=== PATIENT | female | born 1945 | race Caucasian/White ===

== ENCOUNTER 2016-04-18 08:58 | Outpatient (CLI) ==
--- NOTE | 2016-04-18 11:57 | MRI ---
EXAM: MRI left knee without contrast. HISTORY: Left knee pain. TECHNIQUE: Using a local extremity coil on a high field strength magnet multiplanar multisequence M RI was performed of the left knee without intravenous or intra-articular gadolinium contrast.. FINDINGS: I do not have prior radiographs of the left knee available for comparison at the time of this dictation. Within the medial compartment there is tear posterior horn medial meniscus involving the inner andrew n and undersurface. 7 mm area of chondrosis and cartilage ulceration weightbearing medial femoral c ondyle. Mild chondrosis over the weightbearing medial tibial plateau. Joint centered subchondral b one marrow edema/cyst formation more over the medial weightbearing aspect of medial compartment with subchondral cyst formation as well as some bone marrow edema/hyperemia throughout the medial femora l condyle.. Productive osteophyte formation. Within the lateral compartment lateral meniscus is intact without discrete surfacing meniscal tear. The lateral compartment cartilage shows chondrosis over the weightbearing lateral tibial plateau wi th tiny fissuring/ulceration. Within the patellofemoral compartment the patella seated with intact patellar attachment of the medi al and lateral patellar retinaculum.. Markedly severe patellar chondrosis/chondromalacia patella. Approximate 20 x 30 mm area of full-thickness cartilage ulceration/denudation centered over the medi an ridge with underlying subchondral edema/cyst formation. Chondrosis/corresponding disease over th e medial trochlea. Small/moderate sized left knee effusion. No osteochondral loose bodies. Intact anterior and academic affairs coordinator ior cruciate ligament fibers of normal orientation. The extensor mechanism is intact. Anterior sup erficial soft tissue edema/swelling.. Grade I sprain medial collateral ligament. Lateral collatera l ligament complex intact as is the posterolateral corner. Moderate sized minimally complex posteri or joint extension/popliteal cyst spanning 7 cm craniocaudad.. IMPRESSION: Tear posterior horn medial meniscus involving the inner margin and undersurface. Changes of tricompartmental osteoarthrosis, medial and patellofemoral compartment dominant, as descr ibed. Small/moderate sized left knee effusion. Intact cruciate ligaments. Grade I sprain medial collateral ligament. Moderate sized minimally complex posterior joint extension/popliteal cyst. Recommendation is obtainment and correlation with plain film radiographs of the left knee as none ar e available for comparison at the time of this dictation.
== END 2016-04-18 08:59 | disposition home or self-care (01) ==
LOC: RAD 08:58
PROVIDERS: ATTEND Physician Assistant
DX: M25.562 Pain in left knee (principal)

== ENCOUNTER 2016-10-21 13:22 | Outpatient (CLI) ==
[2016-10-21 13:49] LABS: BILIRUBIN,URINE Negative (NEGATIVE); KETONES,URINE Negative (NEGATIVE); LEUKOCYTE ESTERASE ,URINE 3+ (NEGATIVE); NITRITE,URINE Positive (NEGATIVE); PROTEIN,URINE Negative (NEGATIVE); URINE, BLOOD Trace-lysed (NEGATIVE)
[2016-10-21 13:51] LABS: BASOPHILS # (AUTO) 0.1 K/uL (0-0.2); BASOPHILS % (AUTO) 1.1 % (0.0-3.0); EOSINOPHILS # (AUTO) 0.1 K/ul (0.0-0.7); EOSINOPHILS % (AUTO) 1.6 % (0.0-7.0); HEMATOCRIT 38.1 % (37.0-47.0); HEMOGLOBIN 12.8 g/dl (12.0-16.0); LYMPHOCYTES # (AUTO) 1.4 K/uL (0.60-3.4); LYMPHOCYTES % (AUTO) 30.2 (10.0-50.0); MEAN CORPUSCULAR HEMOGLOBIN 28.8 pg (27.0-31.0); MEAN CORPUSCULAR HGB CONC 33.6 (31.8-35.4); MEAN CORPUSCULAR VOLUME 85.6 fl (81.0-99.0); MONOCYTES # (AUTO) 0.3 K/uL (0.4-2.0); MONOCYTES % (AUTO) 7.5 (0-10); NEUTROPHILS # (AUTO) 2.7 K/ul (2.0-6.9); NEUTROPHILS % (AUTO) 59.6; PLATELET COUNT 219 10^3/uL (140-440); RED BLOOD COUNT 4.45 10^6/ul (4.20-5.40); WHITE BLOOD COUNT 4.51 K/ul (4.6-10.2)
[2016-10-21 13:57] LABS: ADD URINE MICROSCOPIC YES
[2016-10-21 14:17] LABS: BACTERIA,URINE 3+ (NOT PRESENT)
[2016-10-21 14:57] LABS: ALBUMIN 3.7 g/dL (3.4-5.0); ALBUMIN/GLOBULIN RATIO 1.28; ANION GAP 14.9; BILIRUBIN,TOTAL 0.54 mg/dL (0.00-1.20); BUN/CREATININE RATIO 25.97; CALCIUM 9.3 mg/dL (8.2-10.2); CHOL/HDL RATIO 4.1 (4.5-5.5); CREATININE 0.77 mg/dL (0.60-1.30); POTASSIUM 3.9 mmol/L (3.5-5.10); TOTAL PROTEIN 6.6 g/dL (5.8-8.1)
== END 2016-10-21 13:23 | disposition home or self-care (01) ==
LOC: LAB 13:22
PROVIDERS: ATTEND General Practice
DX: E66.3 Overweight (principal); Z79.899 Other long term (current) drug therapy
CPT/HCPCS: 36415; 80053; 80061; 81001; 83525; 85025; 87086

== ENCOUNTER 2016-11-26 15:20 | Outpatient (CLI) ==
[2016-11-26 15:49] LABS: HEMATOCRIT 39.4 % (37.0-47.0); HEMOGLOBIN 13.5 g/dl (12.0-16.0); MEAN CORPUSCULAR HEMOGLOBIN 29.2 pg (27.0-31.0); MEAN CORPUSCULAR HGB CONC 34.3 (31.8-35.4); MEAN CORPUSCULAR VOLUME 85.1 fl (81.0-99.0); PLATELET COUNT 223 10^3/uL (140-440); RED BLOOD COUNT 4.63 10^6/ul (4.20-5.40); WHITE BLOOD COUNT 5.23 K/ul (4.6-10.2)
[2016-11-26 16:50] LABS: ERYTHROCYTE SEDIMENTATION RATE 18 mm/hr (0-20); ESR INTERNAL QC INTERNAL QC VALID
== END 2016-11-26 15:21 | disposition home or self-care (01) ==
LOC: LAB 15:20
DX: H47.011 Ischemic optic neuropathy, right eye (principal)
CPT/HCPCS: 36415; 85027; 85651; 86140

== ENCOUNTER 2016-12-02 11:11 | Outpatient (CLI) ==
[2016-12-02 11:47] LABS: CREATININE 0.76 mg/dL (0.60-1.30)
--- NOTE | 2016-12-02 19:31 | MRI ---
EXAM: Brain and orbit MRI with and without contrast. HISTORY: Ischemic optic neuropathy, right eye. COMPARISON: None. TECHNIQUE: Multiplanar, multisequence MR images were acquired of the brain with thin sections throug h the orbits before and after administration of intravenous contrast. FINDINGS: The midline structures are central and the craniocervical junction is unremarkable. The v entricles and sulci are normal in size and configuration. There are no abnormal extra-axial fluid co llections. The brain parenchyma has no diffusion restriction to suggest acute hypoperfusion or infarction. Smal l faint patchy T2 / FLAIR hyperintensities are present in the bilateral parietal occipital periventri cular white matter and there are a few scattered in the subcortical white matter consistent with kieran r leukomalacia. After administration of gadolinium, no enhancing lesions are identified. The corpus callosum has a normal configuration. The pituitary gland is normal in size. Thin sections were acquired through the orbits. There are no intraorbital masses. There is mild enla rgement and slightly increased T2 signal in the right optic nerve compared to the left without enhanc ement compatible with mild edema. The optic chiasm and proximal optic tracts are unremarkable. Ther e has been previous lens surgery bilaterally. Mild polypoid mucosal thickening is present in the right maxillary sinus. Middle ears and mastoids a re clear. There is no abnormal enhancement in the internal auditory canals or labyrinthine structure s. Flow voids are present in the major intracranial arteries and dural venous sinuses. There is hypertrophic facet arthropathy in the the upper cervical spine. This causes mild 1.5 mm deg enerative anterolisthesis of C3 and C4. IMPRESSION: 1. No intracranial mass, hemorrhage or acute cerebral infarct. 2. There is mild swelling and bright T2 signal in the right optic nerve compared to the left which m ay represent edema. 3. Minor chronic ischemic small vessel disease.
== END 2016-12-02 11:12 | disposition home or self-care (01) ==
LOC: RAD 11:11
PROVIDERS: ATTEND Ophthalmology
DX: H47.011 Ischemic optic neuropathy, right eye (principal); H53.123 Transient visual loss, bilateral
CPT/HCPCS: 36415; 82565

== ENCOUNTER 2016-12-11 21:12 | Inpatient (IN) ==
[2016-12-11 21:30] VITALS: BMI 31.9
--- NOTE | 2016-12-11 22:19 | ED.PDOC ---
General ED Provider: Dr. SHERRELL BUTCHER Chief Complaint: Hypertension Stated Complaint: Patient is a 71 year old female who two weeks ago had a gradual to sudden partial loss of right eye vision. She was seen by a neurologist and had multiple test including MRI, CT, Carotid artery ultrasounds. She was place on 60mg of prednisone due to suspicion of temporal arthritis in attempt to prevent total visual loss. She was later seen by an interventional neurologist and had a temporal artery biopsy on the right. The biopsy results were reported to her as negative 3 days ago and was told to taper down her steroids. (Now on 50mg was to start 40 mg tonight) She followed up with one in a local clinic and was placed on clonidine for hypertension. She was then seen in another clinic few days later and started on Lisinopril. Today she comes to the ER tonight due to elevated blood pressure at home in the 200s after taking her Lisinopril 10mg tonight and the clonidine 0.1mg half an hour prior to arrival. She also reports that she has had difficulty sleeping due to steroids and has had anxiety for which she has been taking Ativan. She was worried because cannot get to the PCP after calling an failing to get at apt yesterday. She is accompanied by family. Time Seen by Physician: 21:37 Mode of Arrival: Walk-In Information Source: Patient Exam Limitations: No limitations [facility] Nursing and Triage Documentation Reviewed and Agree: Yes Miscellaneous Complaint Exam - Physical Examination Complaint/Exam Onset/Duration: 1 Symptoms Are: Still present Timing: Constant Location: Right eye Review of Systems - Review Of Systems Constitutional: Reports: No symptoms Eyes: Reports: Vision change (partial on the right) Ears, Nose, Mouth, Throat: Reports: No symptoms Respiratory: Reports: No symptoms Cardiac: Reports: No symptoms GI: Reports: No symptoms : Reports: No symptoms Musculoskeletal: Reports: No symptoms Skin: Reports: No symptoms Neurological: Reports: Anxiety Endocrine: Reports: No symptoms Hematologic/Lymphatic: Reports: No symptoms All Other Systems: Reviewed and Negative Past Medical History - Past Medical History Previously Healthy: Yes Endocrine: Reports: None Cardiovascular: Reports: Hypertension Respiratory: Reports: None Hematological: Reports: None Gastrointestinal: Reports: None Genitourinary: Reports: None Neuro/Psych: Reports: Anxiety Musculoskeletal: Reports: None Cancer: Reports: None Last Menstrual Period: post menopausal - Surgical History General Surgical History: Reports: Hysterectomy, Appendectomy, Cholecystectomy, Other (Right temporal artery biopsy.) - Family History Family History: Reports: None - Social History Smoking Status: Never smoker Hx Substance Use: No Alcohol Screening: None - Immunizations Tetanus Shot up to Date: No (unsure) Physical Exam - Physical Exam Appearance: Ill-appearing, Obese Ill-appearing: Mild Eyes: RAKESH, EOMI, Conjunctiva clear ENT: Oropharynx normal Neck: Supple Respiratory: Airway patent, Breath sounds clear, Breath sounds equal, Respirations nonlabored Cardiovascular: RRR, Pulses normal, No rub, No murmur GI/: Soft, Nontender, No masses, Bowel sounds normal, No Organomegaly Musculoskeletal: Normal strength, ROM intact, No edema, No calf tenderness Skin: Warm, Dry, Normal color (Healing right tempral artery area) Neurological: Sensation intact, Motor intact, Reflexes intact, Alert, Oriented Psychiatric: Anxious Re-Evaluation - Re-Evaluation Time of Re-Evaluation: 21:00 Vital Signs Stable: Yes (147/68) Appearance: NAD Neuro: Alert and Oriented X3 Critical Care Note - Critical Care Note Total Time (mins): 0 Course - Course Hematology/Chemistry: 12/11/16 22:28 12/11/16 22:28 Orders, Labs, Meds: Lab Review 12/11/16 12/11/16 22:28 22:28 WBC 8.42 RBC 4.32 Hgb 12.6 Hct 37.0 MCV 85.6 MCH 29.2 MCHC 34.1 RDW Coeff of Castillo 15.2 H Plt Count 226 Immature Gran % (Auto) 0.7 Neut % (Auto) 81.4 Lymph % (Auto) 12.0 [place] % (Auto) 5.9 Eos % (Auto) 0.0 Baso % (Auto) 0.0 Immature Gran # (Auto) 0.1 Neut # 6.9 Lymph # 1.0 [place] # 0.5 Eos # 0.0 Baso # 0.0 Sodium 142 Potassium 4.0 Chloride 110 H Carbon Dioxide 24 Anion Gap 12.0 BUN 22 H Creatinine 0.71 Estimated GFR (MDRD) 81.00 BUN/Creatinine Ratio 30.98 Glucose 127 H Calcium 8.9 Total Bilirubin 0.37 AST 6 L ALT 14 Alkaline Phosphatase 95 Total Protein 5.6 L Albumin 3.1 L Globulin 2.5 Albumin/Globulin Ratio 1.24 Orders Category Date Time Status CBC W/ AUTO DIFF Stat LAB 12/11/16 22:28 Completed COMPREHENSIVE METABOLIC PANEL Stat LAB 12/11/16 22:28 Completed Medications Generic Name Dose Route Start Last Admin Trade Name Freq PRN Reason Stop Dose Admin Acetaminophen 650 mg 12/11/16 23:43 Tylenol PO Q4H PRN fever or mild pain Amlodipine Besylate 5 mg 12/13/16 02:00 Norvasc PO DAILY [facility] Aspirin 81 mg 12/12/16 08:00 Aspirin Ec PO DAILYWM CLAUDIA Famotidine 20 mg 12/12/16 09:00 Pepcid PO BID CLAUDIA Lisinopril 10 mg 12/12/16 09:00 Zestril PO DAILY CLAUDIA Lorazepam 0.5 mg 12/11/16 23:47 12/12/16 01:08 Ativan PO 0.5 mg BID PRN Administration anxiety Ondansetron HCl 4 mg 12/11/16 23:43 Zofran 4 Mg/2 Ml IVP Q6H PRN Nausea / Vomiting Prednisone 40 mg 12/12/16 08:00 Prednisone PO DAILYWM [facility] Vital Signs: Temp Pulse Resp BP Pulse Ox 12/11/16 21:20 96.9 F L 96 H 20 211/104 H 98 Departure - Departure Time of Disposition: 23:55 Disposition: ADMITTED INPATIENT Discharge Problem: Anxiety Hypertension Qualifiers: Hypertension type: essential hypertension Qualified Code(s): I10 - Essential ( primary) hypertension Condition: Stable Pt referred to PMD for follow-up: No (admitted ) Allergies/Adverse Reactions: Allergies ibuprofen [From Motrin] Allergy (Verified 12/11/16 21:45) rosuvastatin calcium [From Crestor] Allergy (Verified 12/11/16 21:45) Iodinated Contrast- Oral and IV Dye Adverse Reaction (Verified 12/11/16 21:48) Difficulty Swallowing Home Medications: Ambulatory Orders Clonidine HCl 0.1 mg PO TID PRN 12/11/16 Famotidine 20 mg PO BID 12/11/16 Lisinopril 10 mg PO DAILY 12/11/16
[2016-12-11 22:30] LABS: HEMOGLOBIN 12.6 g/dl (12.0-16.0); IMMATURE GRANULOCYTE % (AUTO) 0.7 % (0.0-5.0); MEAN CORPUSCULAR HEMOGLOBIN 29.2 pg (27.0-31.0); MEAN CORPUSCULAR HGB CONC 34.1 (31.8-35.4); MEAN CORPUSCULAR VOLUME 85.6 fl (81.0-99.0); MONOCYTES # (AUTO) 0.5 K/uL (0.4-2.0); MONOCYTES % (AUTO) 5.9 (0-10); NEUTROPHILS # (AUTO) 6.9 K/ul (2.0-6.9); NEUTROPHILS % (AUTO) 81.4; PLATELET COUNT 226 10^3/uL (140-440); RED BLOOD COUNT 4.32 10^6/ul (4.20-5.40); WHITE BLOOD COUNT 8.42 K/ul (4.6-10.2)
[2016-12-11 22:47] LABS: ALBUMIN 3.1 g/dL (3.4-5.0); ALBUMIN/GLOBULIN RATIO 1.24; BILIRUBIN,TOTAL 0.37 mg/dL (0.00-1.20); BUN/CREATININE RATIO 30.98; CALCIUM 8.9 mg/dL (8.2-10.2); CREATININE 0.71 mg/dL (0.60-1.30); TOTAL PROTEIN 5.6 g/dL (5.8-8.1)
[2016-12-11] MEDS ORDERED: TYLENOL PO PRN (23:43)
[2016-12-11] MEDS ORDERED: ZOFRAN 4 MG/2 ML IVP PRN (23:43)
[2016-12-11] MEDS ORDERED: ATIVAN PO PRN (23:47)
[2016-12-12 05:29] LABS: ANION GAP 11.6; BUN/CREATININE RATIO 26.86; CALCIUM 8.5 mg/dL (8.2-10.2); CREATININE 0.67 mg/dL (0.60-1.30); POTASSIUM 3.6 mmol/L (3.5-5.10)
[2016-12-12] MEDS ORDERED: PREDNISONE PO SCH (08:00)
[2016-12-12] MEDS ORDERED: ZESTRIL PO SCH (09:00)
[2016-12-12] MEDS: ASPIRIN EC PO SCH (09:39)
[2016-12-12] MEDS: PEPCID PO SCH ×2 (09:39→16:52)
[2016-12-12] MEDS ORDERED: ATIVAN PO STA (18:20)
[2016-12-12] MEDS ORDERED: ZESTRIL PO STA (18:21)
[2016-12-12] MEDS ORDERED: LOVENOX SUBCUT STA (18:22)
[2016-12-12] MEDS ORDERED: ATIVAN PO SCH (21:00)
[2016-12-12] MEDS ORDERED: ATIVAN PO ONE (21:00)
[2016-12-13] MEDS ORDERED: NORVASC PO SCH (02:00)
[2016-12-13] MEDS: PEPCID PO SCH (06:01)
[2016-12-13 06:39] LABS: BUN/CREATININE RATIO 29.72; CALCIUM 8.8 mg/dL (8.2-10.2); CREATININE 0.74 mg/dL (0.60-1.30)
[2016-12-13] MEDS: PREDNISONE PO SCH (08:42)
[2016-12-13] MEDS: ASPIRIN EC PO SCH (08:42)
[2016-12-13] MEDS: NORVASC PO SCH (09:55)
[2016-12-13] MEDS: ZESTRIL PO SCH (10:27)
[2016-12-13 14:28] LABS: ERYTHROCYTE SEDIMENTATION RATE 2 mm/hr (0-20); ESR INTERNAL QC INTERNAL QC VALID
[2016-12-13] MEDS ORDERED: ATIVAN PO SCH (21:00)
[2016-12-14] MEDS: ZESTRIL PO SCH (08:41)
[2016-12-14] MEDS: ASPIRIN EC PO SCH (08:41)
[2016-12-14] MEDS: NORVASC PO SCH (08:41)
[2016-12-14] MEDS: PREDNISONE PO SCH (08:42)
[2016-12-14 15:42] VITALS: BP 126/64; TEMP 97.9
[2016-12-15] MEDS ORDERED: PREDNISONE PO SCH (08:00)
--- NOTE | 2016-12-19 13:23 | HP ---
CHIEF COMPLAINT: Markedly elevated blood pressure with headache in spite of medication. SOURCE OF HISTORY: Patient, as well as . Reliability good. HISTORY OF PRESENT ILLNESS: The patient, more than two weeks ago, had experienced blurred vision with no significant headaches. She went to [place], [place] for a consultation with a neurologist. The patient was felt then to have full arteritis and they and needed a biopsy. The patient was noted on examination to have a defect in visual field on the right. It was mostly the inferior portion of the visual field that was defective. The patient had seen a Retinologist in [place], as well as a vascular surgeon. The patient while at the vascular surgeons office was noted to have hypertension and since I was not available, she was referred to an urgent care who prescribed Lisinopril 10 mg daily with Clonidine 0.1 mg three times a day as needed. The patient had continued to experience blurred vision with some loss of the inferior field on the right eye. She underwent temporal artery biopsy on the right side on November 26, 2016 and was initiated on Prednisone at 60 mg on November 28, 2016. The biopsy was negative for findings compatible with temporary arteritis and her Prednisone was then decreased from 60 to 50. The patient on the day of presentation to the emergency room on 12/11/16 had recorded a blood pressure of 214/97 at home, some headaches, severe and so she took Clonidine 0.1 mg for the first time since it was prescribed. She took it at 8:30 in the evening. She presented to the emergency room at 9:20 p.m. because of the blood pressure problems. The blood pressure was recorded at 211/ 104. After examination, the emergency room physician felt that she needed to have further observation, although her blood pressure had returned towards normal. PAST PERSONAL HISTORY: The patient was diagnosed recently with hypertension and treated at urgent care with Lisinopril and Clonidine. Previous cholecystectomy 1972, appendectomy, as well as abdominal hysterectomy. She had a CT scan of the head because of the defective visual field on the right side and the blurred vision. She also had an MRI, but no MRI done 12/02/2016. The MRI did show some edema of the optic nerve. The MRI otherwise was unremarkable. Previous cataract surgery on both eyes in March 2016. FAMILY HISTORY: Sister had breast carcinoma. Mother had thyroid surgery and father had prostatic carcinoma. Mother's family had history of diabetes, as well as cerebral vascular accident. 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 She resides with her and never did smoke in her life and very occasional alcoholic drinks. MEDICATIONS: Lorazepam 0.5 mg twice a day Lisinopril 10 mg daily Pepcid 20 mg twice a day Clonidine 0.1 mg three times a day prn Prednisone 60 mg daily at 20 mg tablets ALLERGIES: Ibuprofen, Crestor, Iodine contrast. REVIEW OF SYSTEMS: CONSTITUTIONAL: The patient is alert and oriented times four, not dyspneic, nor tachypneic and well developed. She is afebrile. PLACEMENT MANAGER: The patient is complaining of blurred vision with defect in the inferior portion of the visual field of the right eye. No seizures. No significant headaches. VISUAL: The patient does have an abnormal visual field on the right side with some absence on the anterior portion. No diplopia. Has blurring. No quadrant hemianopsia. AUDITORY: The patient's hearing is adequate. No tinnitus. RESPIRATORY: The patient has no cough, no shortness of breath. History of recent URI. CARDIOVASCULAR: The patient denies any chest pain or chest oppression or chest tightness with diaphoresis without any exertion. GASTROINTESTINAL: The patient's appetite is good. No dysphagia. No nausea. No abdominal pain. GENITOURINARY: The patient does not have any dysuria or urgency. MUSCULOSKELETAL: The patient denies any significant joint pains or muscular. ENDOCRINE: Negative. INTEGUMENT: No rash or pruritus. HEMATOLOGIC: Denies any history of prolonged bleeding or easy bruising. PSYCHIATRIC: Affect is normal. 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 The patient is taking medication and did take the dose consisting of Lisinopril 10 mg every day and took for the first time about 8:30 in the evening , an hour before presentation to the emergency room, Clonidine 0.1 mg. VITAL SIGNS: In the emergency consisted of blood pressure 211/104, pulse 96, temperature 96.9, respiratory rate 20, oxygen saturation 98. The patient was admitted to the floor at 12:16 a.m. 12/12/2016 and showed a vital sign of 154/76 , pulse rate of 65, temperature 97.7, respiratory rate 12, oxygen saturation 97. HEAD: Unremarkable. FACE: Right side is more prominent, edematous, probably from the temporal artery biopsy. The incision is very long extending from the area of the temporal artery and anterior to the right ear. There is no significant redness and no drainage and no fluctuance or crepitation in the area of the surgery. No facial weakness on either side. EYES: Pupils equal/reactive to light. Visual field defect in the inferior portion of the right. Extraocular movements are intact. MOUTH: Unremarkable. THROAT: No inflammation, tumors or exudate. NECK: No masses. No bruit. No tenderness. No rigidity. CHEST: Symmetrical and equal with good expansion with no remarkable tenderness. LUNGS: Breath sounds are heard in both sides. No rales or wheezing. HEART: Audible and regular with good tones. No murmurs. ABDOMEN: Slightly protuberant and soft with no remarkable tenderness and no guarding. Bowel sounds are active. No masses palpable. Scar from previous surgery and no ventral herniation noted. LOWER EXTREMITIES: Essentially symmetrical and equal. Pedal pulses are present. UPPER EXTREMITIES: Symmetrical and equal. ASSESSMENT: 1. HYPERTENSION, UNCONTROLLED 2. 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 MILD EDEMA RIGHT OPTIC NERVE 4. HISTORY OF ANXIETY 5. HISTORY OF EPIGASTRIC DISTRESS, MAYBE GASTRITIS 6. HISTORY OF BILATERAL CATARACT SURGERY 7. HISTORY OF TEMPORAL ARTERY BIOPSY, NO FINDINGS OF TEMPORAL ARTERITIS 8. HISTORY OF APPENDECTOMY, CHOLECYSTECTOMY AND TOTAL ABDOMINAL HYSTERECTOMY- 1972. 9. ELEVATED BMI 31.9 10. HISTORY OF CLEFT LIP SURGERY MTDD
[2016-12-19 15:24] LABS: URINE DOPAMINE 248 ug/L (Undefined); URINE DOPAMINE 24 HR 312 ug/24 hr (0-510); URINE EPINEPHRINE 2 ug/L (Undefined); URINE EPINEPHRINE 24 HR 3 ug/24 hr (0-20); URINE NOREPINEPHRINE 22 ug/L (Undefined); URINE NOREPINEPHRINE 24 HR 28 ug/24 hr (0-135)
--- NOTE | 2016-12-20 10:52 | PN ---
DATE OF SERVICE: 12/12/2016 The patient is alert and oriented times four. Not dyspneic, nor tachypneic. Feeling good. I had discussed with her her blood pressure. VITAL SIGNS: Blood pressure at 1800 on 12/12/16 was 156/54, pulse 74, respiratory rate 18, oxygen saturation 95 at room air. LUNGS: The patient's lungs are clear to auscultation in both sides. HEART: Normal sinus rhythm. I had a long discussion with her in the presence of her and granddaughter about the hypertension. I felt that maybe the Prednisone may have triggered the rise, since Prednisone can have fluid, as well as sodium retention. Her blood pressure now is acceptable and we will continue to watch and that she would be given another medication for the hypertension consisting of Amlodipine 5 mg daily. The absence of vision on the lower portion of the right visual field maybe due to thrombosis of the retinal vessel. The patient will be given Lovenox for prophylaxis for DVT. KEN
--- NOTE | 2016-12-20 11:00 | PN ---
DATE OF SERVICE: 12/13/2016 The patient, today, is alert, oriented times four, not dyspneic, nor tachypneic and feeling well, except for the persistent blurred vision and a defect in the right side of the visual field, lower. She denies any chest pain or any significant headaches. She was able to sleep with doubling the Ativan at night. VITAL SIGNS: At 5:43 p.m. showed a temperature of 98.3, pulse 75, blood pressure 137/71 and the previous two blood pressures were very close to that number. Respiratory rate 18, oxygen saturation 96 at room air. NECK: No masses and no bruit. The patient had carotid Doppler done recently. Ordered by the consulting doctors. LUNGS: Clear to auscultation in both sides. HEART: Normal sinus rhythm. ABDOMEN: Nontender. Chemistries are normal with no significant changes. SED rate is 2 and CRP is 1.4, both are normal, but probably expected since she is taking steroids. The blood pressure is now controlled. CONDITION: Stable. MTDD
--- NOTE | 2016-12-20 11:17 | PN ---
DATE OF SERVICE: 12/14/2016 The patient is alert, oriented times four, not dyspneic, nor tachypneic this afternoon. I did see the patient about 4 p.m. The granddaughter was present. I had explained to her the blood pressure is now normal and the readings are approximately very close to each other. She will continue with the Lisinopril at 20 mg daily and Amlodipine 5 mg daily. I urged her not to use the Clonidine. She only has used this medication once. The patient walked into the room in the course of the discussion. She is advised again to see me in a week from this coming Friday and before if there were any problems. She asked me about when she should call me and I told her that if her blood pressure is persistently elevated at 170 or 180, that she should let me know so that we could most likely add another medication and probably a diuretic. She urged to began some sort of physical exercise. She should not add anymore salt to the cooking. LUNGS: Clear. HEART: Normal sinus rhythm. ABDOMEN: Nontender. CONDITION: Stable. Blood pressure normal. MTDD
--- NOTE | 2016-12-20 13:57 | DS ---
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 She had seen a neurologist in [place], as well as a retinologist in [place] and a vascular surgeon. The patient had a temporal artery biopsy and the diagnosis was not confirmed by the biopsy. The patient was given Prednisone 60 mg daily and was reduced just before admission to 50 mg after the biopsy was negative. The patient developed severe rise of the blood pressure to 214/97 and was 211/104 in the emergency room in spite of the Lisinopril medication, as well as Clonidine 0.1 mg taken an hour before. This patient was not hypertensive prior to biopsy. HOSPITAL COURSE: The patient while in the hospital had an initial CBC on , which is essentially normal. Chemistries unremarkable. The total protein was slightly below normal at 5.6 and albumin of 3.1. SED rate was 2 and CRP 1.4 , probably because the patient is now on Prednisone. The patient's blood pressure since admission had been close to normal. The first was 154/76, subsequent blood pressures were within normal limits, except for an episode of 156/54 at 6 p.m. on 12/12/16. The rest of the blood pressures were then judged to be normal. The patient at the time of discharge was alert, ambulatory with movement of all extremities. She still has the blurred vision, as well as loss of the lower portion of the visual field on the right eye. She does not have any significant headaches and has problems sleeping most likely due to Prednisone. She could feel some sensation in her head that she could hardly explain. This is probably due to the Prednisone. Prednisone was reduced to 30 mg for two days and then down to 20 mg for the next several days. I did advise the patient to avoid very much salt or no added salt in the food and began to have physical activity such as walking short distances and increasing after every two weeks. Prednisone will be continued at 20 mg for the next three days and down to 10 mg until I see her at the office about nine days from today. The patient at discharge was alert, ambulatory with movement of all extremities and no significant headaches and no diplopia. She still has some blurred vision. The MRI done 12/02/2016 showed some edema of the right optic nerve. She did not have an MRA with the MRI. The patient is feeling good and is advised to continue the medication as prescribed consisting of Lisinopril 20 mg daily. I did advise her to double it up since she was prescribed 10 mg and we will prescribe the rest at 20 when she comes to the office for follow up. She also is prescribed Amlodipine 5 mg daily that she was initiated from admission. She is advised not to take any of the Clonidine and I explained to her that the Clonidine indeed is a good blood pressure medication, but it does fluctuate. It should not be taken as a prn. If one was to take it that one should take either every 12 hours regularly or every 8 hours preferably. LUNGS: Clear to auscultation in both sides with no wheezing. HEART: Audible and regular with good tones. ABDOMEN: Nontender. PLAN: Continue the previous medications, except the Clonidine, plus the new medication. The previous medication of Lisinopril is to be doubled to 20 mg instead of 10 mg daily. FINAL DIAGNOSES: 1. ACCELERATED HYPERTENSION, PROBABLY SECONDARY TO STEROID MEDICATION. 2. ABNORMAL VISUAL FIELD, RIGHT, ABSENT LOWER 3. EDEMA OF THE RIGHT OPTIC NERVE BY CT 4. HISTORY OF CATARACT SURGERY 5. ELEVATED BMI 31.9 MTDD
== END 2016-12-14 17:07 | disposition home or self-care (01) | DRG 305 ==
LOC: ED 21:12 → MEDSURG A 23:38
PROVIDERS: ADMIT General Practice; ATTEND General Practice
DX: I15.8 Other secondary hypertension (principal); H47.10 Unspecified papilledema; T38.0X5A Adverse effect of glucocorticoids and synthetic analogues, initial encounter; I10 Essential (primary) hypertension; F41.9 Anxiety disorder, unspecified; H54.61 Unqualified visual loss, right eye, normal vision left eye; H53.8 Other visual disturbances; E66.9 Obesity, unspecified; Z86.69 Personal history of other diseases of the nervous system and sense organs; Z68.31 Body mass index [BMI] 31.0-31.9, adult; Z79.899 Other long term (current) drug therapy
CPT/HCPCS: 36415; 80048; 80053; 82384; 85025; 85651; 86140; 99284

== ENCOUNTER 2017-07-07 12:03 | Outpatient (CLI) | END 2017-07-07 12:04 | disposition home or self-care (01) | LOC: FCC-LAB 12:03 | PROVIDERS: ATTEND General Practice | DX: I10 Essential (primary) hypertension (principal); H53.121 Transient visual loss, right eye; H40.053 Ocular hypertension, bilateral; H47.011 Ischemic optic neuropathy, right eye; K59.00 Constipation, unspecified; Z79.899 Other long term (current) drug therapy; F32.9 Major depressive disorder, single episode, unspecified; F41.9 Anxiety disorder, unspecified; H43.813 Vitreous degeneration, bilateral | CPT/HCPCS: 36415; 80053; 80061; 81001; 84443; 85025; 87086 ==

== ENCOUNTER 2017-08-18 06:34 | Outpatient (CLI) ==
--- NOTE | 2017-08-18 09:23 | STRESSMOD ---
Date of Test: 08/18/17 Ordering Physician: DR. PRIMO DELGADILLO Occupation: RETIRED Reason for Exam: LEFT ARM PAIN Smoking History: NON SMOKER Height: 61" Weight: 171 LBS Current Medications: LISINOPRIL, ATIVAN Resting EKG: SINUS RHYTHM/ NO ACUTE CHANGES Target Heart Rate: 124/146 S-T SEGMENT STAGE MPH/GRADE HEART RATE BPM BLOOD PRESSURE mmhg RHYTHM +/- ELEVATION DEPRESSION SYMPTOMS,COMMENTS At Rest 69 170/82 SR X NONE 1 1.7/0% 2 1.7/5% 3 1.7/10% 4 2.5/12% 5 3.4/14% Immediately After 136 192/100 SR X FATIGUE Minutes Post Exercise 5:00 80 150/82 SR X NO COMMENTS Minutes Post Exercise DURATION OF EXERCISE: 3:50 MAXIMUM HEART RATE REACHED: 136 REASON FOR TERMINATION: FATIGUE 97% OXYGEN SATURATION WITH EXERCISE ON ROOM AIR METS 4.0 INTERPRETATION: 1. NO EVIDENCE OF ISCHEMIA BY ST-T WAVE 2. NO ARM PAIN OR CHEST PAIN OR DISCOMFORT 3. PAC'S NOTED, FEW WITH EXERCISE 4. BLOOD PRESSURE RESPONSE: HYPERTENSION AT REST AND WITH EXERCISE NORMAL LEFT VENTRICULAR CONTRACTILITY--RESTING AND POST EXERCISE MTDD
--- NOTE | 2017-08-18 09:25 | ECHOSTRESS ---
Date of Exam: 08/18/17 Ordering Physician: DR. PRIMO DELGADILLO Reason for Echo: LEFT ARM PAIN M-Mode Normal Adult Results LV Dimensions Normal Adult Results AoV Opening excursions >1.6 LVEDD-base- 3.5-5.8 Ao root dimensions 2.0-3.7 LVESD-base- 3.1-4.6 L. Atrium dimensions 1.9-3.8 Post. Wall thickness 0.8-1.1 IV septum (thickness) 0.7-1.2 Post. Wall excursion 0.72-1.3 Septal motion Systolic motion R. Ventricular cavity 1.5-2.0 LVEF 60% Paradoxical septal wall motion 2-D: NORMAL LEFT VENTRICULAR CONTRACTILITY--RESTING AND POST EXERCISE M-MODE: MV: AV: TV: PV: CHAMBER SIZE: WALL MOTION: NORMAL LEFT VENTRICULAR CONTRACTILITY--RESTING AND POST EXERCISE PERICARDIUM: INTERPRETATION: 1. NORMAL LEFT VENTRICULAR CONTRACTILITY--RESTING AND POST EXERCISE MTDD
== END 2017-08-18 06:35 | disposition home or self-care (01) ==
LOC: CAR 06:34
PROVIDERS: ATTEND General Practice
DX: R07.89 Other chest pain (principal)